=== PATIENT | male | born 1995 | race African-American/Black ===

== ENCOUNTER 2025-02-11 21:30 | Emergency (ER) | payer OTHER ==
[~2025-02-11] VITALS: Ht 180.3 cm; Wt 138.3 kg
[2025-02-11] MEDS ORDERED: DULOXETINE HCL30 MG PO (21:52)
[2025-02-11] MEDS ORDERED: STOOL SOFTENER100 M1 PO (21:52)
[2025-02-11] MEDS ORDERED: SENNA8.6 MG PO (21:53)
[2025-02-11] MEDS ORDERED: COZAAR50 MG PO (21:53)
[2025-02-11] MEDS ORDERED: ZYPREXA20 MG PO (21:53)
[2025-02-11] MEDS ORDERED: OSTERA TABLET1 EACH PO (21:54)
[2025-02-11] MEDS ORDERED: LIDOCAINE/RACEPINEP/TETRACAINE 3 ML SYR TOP ONE (23:00)
[2025-02-11] MEDS ORDERED: LOSARTAN POTASSIUM 50 MG TAB PO ONE (23:00)
[2025-02-12] MEDS ORDERED: AMOXICILLIN/CLAVULANATE K 875 MG TAB PO ONE (02:15)
[2025-02-12] MEDS ORDERED: AMOX TR-K CLV1 EAC1 PO (02:16)
[2025-02-12 02:32] VITALS: BP 174/113
== END 2025-02-12 02:33 | disposition other institution, planned readmission (95) ==
LOC: ED 21:30
DX: S01.511A Laceration without foreign body of lip, initial encounter (principal); I10 Essential (primary) hypertension; Z79.899 Other long term (current) drug therapy; W22.8XXA Striking against or struck by other objects, initial encounter
CPT/HCPCS: 12052; 99282-25